=== PATIENT | male | born 1985 | race Asian ===

== ENCOUNTER 2020-10-14 06:29 | Emergency (ER) | payer OTHER ==
[~2020-10-14] VITALS: Ht 170.2 cm; Wt 70.1 kg
[2020-10-14 06:30] VITALS: BP 130/85
[2020-10-14] MEDS ORDERED: IBUP200C25 PO (07:09)
[2020-10-14] MEDS ORDERED: ACETAMINOPHEN 500 MG TAB PO ONE (07:50)
[2020-10-14] MEDS ORDERED: ONDANSETRON 4 MG ORAL DISINTEGRATING TAB PO ONE (07:50)
[2020-10-14] MEDS ORDERED: ONDA4TAB6 PO (08:01)
== END 2020-10-14 08:06 | disposition home or self-care (01) ==
LOC: M ED 06:29
DX: R51.9 Headache, unspecified (principal); R11.0 Nausea; R50.9 Fever, unspecified; R10.9 Unspecified abdominal pain; T50.Z95A Adverse effect of other vaccines and biological substances, initial encounter; Z72.0 Tobacco use
CPT/HCPCS: 99283; Q0162